=== PATIENT | female | born 1970 | race Caucasian/White ===

== ENCOUNTER 2022-07-25 12:33 | Emergency (ER) | payer OTHER, SELFPAY ==
[2022-07-25 12:38] VITALS: BP 131/103; PULSE 103; RESP 20; O2SAT 98; BMI 38.0
--- NOTE | 2022-07-25 12:50 | ED.GENADULT ---
HPI - General Adult General Time Seen by Provider: 12:50 Date Seen: 07/25/22 Chief complaint: Nausea/Vomiting Stated complaint: Food Poisoning/diarrhea Time Seen by Provider: 07/25/22 12:36 Source: patient Mode of arrival: ambulatory Limitations: no limitations History of Present Illness HPI narrative: Patient is a 52 year white female who presents with diarrhea with eating for the last 3 days. She and her family ate at [facility] in [place], her family members were well that she describes loose stools with eating. She has some intermittent crampy abdominal pain but no blood in her stool, no fever, no chest pain or breathing problem, no recent viral type illness. Patient denies any other symptoms of illness, no chest pain, breathing problem as mention. No dysuria frequency, no blood in her stool. Related Data Home Medications Medication Instructions Recorded Confirmed No Known Home Medications 07/25/22 07/25/22 Allergies Allergy/AdvReac Type Severity Reaction Status Date / Time No Known Drug Allergies Allergy Verified 07/25/22 12:42 Review of Systems Status of ROS: Reports: 6 or more systems reviewed and unremarkable except as noted in History and below PFSH PFS Social History Smoking Status: Never smoker Do you use any of these nicotine containing products: None How often do you have a drink containing alcohol: monthly or less How many standard drinks containing alcohol do you have on a typical day: 1 or 2 AUDIT-C Alcohol total score: 1 Non-prescribed substance use: denies use Exam Narrative: Exam Narrative: Objective: Patient's vital signs show slightly elevated pulse, and blood pressure Alert or x3 noncyanotic, mouth is dry slightly dry neck is supple Abdomen benign soft nontender, no masses no rebound extremities Extremities are no edema Skin is warm and dry and periphery Neurologic nonfocal Const: Vital Signs, click to edit/add: Vital Signs - 24 hr 07/25/22 12:38 Pulse Rate [Left P ulse Oximeter] 103 H Respiratory Rate 20 Blood Pressure [Le ft Upper Arm] 131/103 H Pulse Oximetry 98 Oxygen Delivery Me thod Room Air Course Vital Signs Vital signs: Initial Vital Signs Pulse Rate 103 H 07/25/22 12:38 Respiratory Rate 20 07/25/22 12:38 Blood Pressure 131/103 H 07/25/22 12:38 Blood Pressure Mean 112 07/25/22 12:38 Blood Pressure Position Sitting 07/25/22 12:38 Pulse Oximetry 98 07/25/22 12:38 Oxygen Delivery Method 07/25/22 12:38 Vital Signs Pulse Rate 103 H 07/25/22 12:38 Respiratory Rate 20 07/25/22 12:38 Blood Pressure 131/103 H 07/25/22 12:38 Pulse Oximetry 98 07/25/22 12:38 Oxygen Delivery Method 07/25/22 12:38 Pulse Rate 81 07/25/22 14:06 Respiratory Rate 16 07/25/22 14:06 Blood Pressure 121/91 H 07/25/22 14:06 Pulse Oximetry 98 07/25/22 12:38 Oxygen Delivery Method 07/25/22 12:38 Medical Decision Making MDM Narrative Medical decision making narrative: Patient has had loose stools for the last several days since eating out, possible food toxicity. At this point she is mildly dehydrated. Will check labs, IV fluids, sent home with stool culture O and P and C diff. disposition pending results of those studies, at this point I would not treat her with antibiotics or other treatment. Other than maybe Imodium as needed. Addendum: Patient has reassuring lab studies she has had history of elevated liver function tests with a fatty liver. She feels better. I think she likely has some GI toxicity will check stool samples at home she can bring those back to the hospital. She can eat yogurt, fluids, light activity. Return as needed. I suspect this is could be a self-limited issue. Lab Data Labs: Lab Results 07/25/22 07/25/22 07/27/22 Range/Units 13:02 13:02 07:01 WBC 6.53 (4.50-11.00) K/uL RBC 5.24 H (4.00-5.20) m/uL Hgb 14.7 (12.0-16.0) gm/dL Hct 43.1 (33.0-51.0) % MCV 82 (80-100) fL MCH 28 (26-34) pg MCHC 34 (32-36) gm/dL RDW Coeff of Sarthak 13.1 (11.5-15.5) % Plt Count 295 (140-440) K/uL Neut % (Auto) 52.8 (42.0-72.0) % Lymph % (Auto) 34.6 (20-44) % Sanders % (Auto) 9.6 (0.0-11.0) % Eos % (Auto) 2.5 (0.0-7.0) % Baso % (Auto) 0.3 (0.0-3.0) % Neut # (Auto) 3.45 (1.7-7.0) K/uL Lymph # (Auto) 2.26 (0.90-2.90) K/uL Sanders # (Auto) 0.60 (0.00-0.90) K/UL Eos # (Auto) 0.16 (0.00-0.50) K/uL Baso # (Auto) 0.02 (0.00-0.30) K/uL Sodium 140 (135-149) mmol/L Potassium 3.7 (3.6-5.1) mmol/L Chloride 105 (96-114) mmol/L Carbon Dioxide 26 (20-32) mmol/L BUN 18 (7-30) mg/dL Creatinine 1.2 (0.5-1.5) mg/dL Estimated Creat Clear 56.58 Estimated GFR 55 ml/min Glucose 113 (60-115) mg/dL Calcium 9.4 (8.4-10.6) mg/dL Total Bilirubin 0.7 (0.1-1.5) mg/dL Direct Bilirubin 0.2 (0.0-0.5) mg/dL AST 73 H (12-35) U/L ALT 150 H (4-35) U/L Alkaline Phosphatase 98 (40-150) U/L C-Reactive Protein 2.6 H (0.5-1.0) mg/dL Total Protein 8.3 (6.0-8.3) g/dL Albumin 4.7 (3.3-5.0) g/dL Amylase 111 H (18-89) U/L Stl C.difficile Tox PCR Negative (Negative) St C. diff Tox Epid 027 PRESUMPTIVE NEGATIVE (Negative) Discharge Plan Discharge Clinical Impression: Diarrhea Patient Disposition: Home, Self-Care Condition: Improved Additional Instructions: Light activity, yogurt to 3 times a day to eat, Imodium as needed for diarrhea, light activity, return stool samples as able to the hospital. Return to ED sooner as needed. Update regular doctor next couple of days, return as above Activity Level: Light activity Discharge Diet: Regular Prescriptions: No Action No Known Home Medications Stand Alone Forms: [facility] Info Instructions
[2022-07-25] MEDS: 0.9 % SODIUM CHLORIDE 1000 ml 1,000 ML 6000 ML IV (13:04)
[2022-07-25 13:08] LABS: Basophils Absolute Auto 0.02 K/uL (0.00-0.30); Basophils Percent Auto 0.3 % (0.0-3.0); Eosinophils Absolute Auto 0.16 K/uL (0.00-0.50); Eosinophils Percent Auto 2.5 % (0.0-7.0); Hematocrit 43.1 % (33.0-51.0); Hemoglobin* 14.7 gm/dL (12.0-16.0); Immature Granulocytes Abs Auto 0.01 K/uL (0.00-0.30); Immature Granulocytes Pct Auto 0.2 %; Lymphocytes Absolute Auto 2.26 K/uL (0.90-2.90); Lymphocytes Percent Auto 34.6 % (20-44); Mean Corpuscular HGB Conc 34 gm/dL (32-36); Mean Corpuscular Hemoglobin 28 pg (26-34); Mean Corpuscular Volume 82 fL (80-100); Monocytes Percent Auto 9.6 % (0.0-11.0); Neutrophils Absolute Auto 3.45 K/uL (1.7-7.0); Neutrophils Percent Auto 52.8 % (42.0-72.0); Platelet Count* 295 K/uL (140-440); RDW Coefficient of Variation % 13.1 % (11.5-15.5); Red Blood Count 5.24 m/uL (4.00-5.20); White Blood Count* 6.53 K/uL (4.50-11.00)
[2022-07-25 13:09] LABS: Slide Review Reflex No
[2022-07-25 13:23] LABS: Albumin* 4.7 g/dL (3.3-5.0); Chloride* 105 mmol/L (96-114); Sodium* 140 mmol/L (135-149)
[2022-07-25 13:24] LABS: Potassium* 3.7 mmol/L (3.6-5.1)
[2022-07-25 13:26] LABS: Amylase* 111 U/L (18-89); Bilirubin Direct* 0.2 mg/dL (0.0-0.5); Bilirubin Total* 0.7 mg/dL (0.1-1.5); Carbon Dioxide* 26 mmol/L (20-32); Creatinine* 1.2 mg/dL (0.5-1.5); Est. Creatinine Clearance* 56.58; Estimated Glomerular Filt Rate 55 ml/min; Total Protein* 8.3 g/dL (6.0-8.3)
[2022-07-25 13:27] LABS: Alanine Aminotransferase* 150 U/L (4-35); Alkaline Phosphatase* 98 U/L (40-150); Aspartate Amino Transferase* 73 U/L (12-35); Blood Urea Nitrogen* 18 mg/dL (7-30); Calcium* 9.4 mg/dL (8.4-10.6); Glucose* 113 mg/dL (60-115)
[2022-07-25 13:29] LABS: C Reactive Protein* 2.6 mg/dL (0.5-1.0)
[2022-07-25 14:06] VITALS: BP 121/91; PULSE 81; RESP 16
--- NOTE | 2022-07-25 14:07 | ED.NURSE ---
stool sample collection sent home with the patient.
[2022-07-27 09:36] LABS: C.Difficile Negative (Negative); CDIFFEPI 027 PRESUMPTIVE NEGATIVE (Negative)
[2022-08-02 10:09] LABS: Ova and Parasite, Fecal Negative (Negative)
== END 2022-07-25 14:07 | disposition home or self-care (01) ==
PROVIDERS: Emergency Provider Family Medicine; PCP Physician Assistant Medical
DX: R19.7 Diarrhea, unspecified (principal)
CPT/HCPCS: 36415; 80048; 80076; 82150; 85025; 86140; 87045; 87046; 87177; 87209; 87427; 87493; 96360; 99284; J7030

== ENCOUNTER 2022-08-18 10:16 | Outpatient (CLI) | payer OTHER, SELFPAY ==
[2022-08-18 14:40] LABS: Albumin* 4.6 g/dL (3.3-5.0)
[2022-08-18 14:43] LABS: Alanine Aminotransferase* 66 U/L (4-35); Alkaline Phosphatase* 86 U/L (40-150); Amylase* 72 U/L (18-89); Aspartate Amino Transferase* 35 U/L (12-35); Bilirubin Direct* 0.2 mg/dL (0.0-0.5); Bilirubin Total* 0.6 mg/dL (0.1-1.5); Total Protein* 7.4 g/dL (6.0-8.3)
[2022-08-18 14:55] LABS: Erythrocyte SedimentationRate* 10 mm/hr (2-20)
== END 2022-08-18 10:17 | disposition home or self-care (01) ==
PROVIDERS: PCP Physician Assistant Medical; Visit Provider Nurse Practitioner Family
DX: R10.9 Unspecified abdominal pain (principal)
CPT/HCPCS: 80076; 82150; 85651; 87086